=== PATIENT | female | born 2000 | race Caucasian/White ===

== ENCOUNTER 2018-05-17 18:06 | Emergency (ER) | payer MEDICAID, OTHER ==
[2018-05-17] MEDS: LORAZEPAM 0.5 MG TAB PO (19:37)
[2018-05-17 20:14] LABS: URINE BLOOD (Dip) POC Negative (NEGATIVE); URINE GLUCOSE (Dip) POC Negative (NEGATIVE); URINE KETONES (Dip) POC Negative (NEGATIVE); URINE LEUKOCYTE EST (Dip) POC Trace (NEGATIVE); URINE NITRITE (Dip) POC Negative (NEGATIVE); URINE TOTAL PROTEIN POC Negative (NEGATIVE)
== END 2018-05-17 20:35 | disposition home or self-care (01) ==
LOC: FTE 18:06
DX: G44.209 Tension-type headache, unspecified, not intractable (principal); I10 Essential (primary) hypertension
CPT/HCPCS: 81003; 81025; 99283